=== PATIENT | female | born 2000 | race Two or more races ===

== ENCOUNTER 2019-03-30 23:15 | Emergency (ER) | payer SELFPAY ==
[~2019-03-30] VITALS: Ht 160 cm; Wt 84.8 kg
[2019-03-31 00:15] VITALS: BP 115/69
--- NOTE | 2019-03-31 00:50 | PHYS DOC ---
Past Medical History Past Medical History: No Pertinent History Past Surgical History: No Surgical History Additional Information: Nonsmoker Alcohol Use: None Drug Use: None Adult General Chief Complaint Chief Complaint: SYNCOPE HPI HPI 18-year-old female presents with report of occipital numbness after patient had mechanical slip and fall on her stairs and ended up striking the back of her head on the stairwell wall. Patient denies loss of consciousness. Denies laceration. Denies neck pain. Denies use of blood thinners. Denies . Patient reports she is currently treated with control. Utilization of spanish medical interpreter line for Mongolian speaker. Review of Systems Review of Systems Constitutional: Denies fever or chills Eyes: Denies redness or eye pain HENT: Denies nasal congestion or epistaxis Respiratory: Denies cough or shortness of breath Cardiovascular: Denies chest pain or palpitations GI: Denies abdominal pain, nausea, or vomiting : Denies dysuria or hematuria Musculoskeletal: Denies back pain or neck pain Integument: Denies laceration; reports occipital contusion Neurologic: Reports headache, dizziness, and occipital numbness; denies focal weakness Complete systems were reviewed and found to be within normal limits, except as documented in this note. Allergies Allergies Allergies Coded Allergies Type Severity Reaction Last Updated Verified Pork/Porcine Containing Products Allergy Intermediate 09/22/18 Yes Physical Exam Physical Exam Constitutional: Well developed, well nourished, no acute distress, non-toxic appearance HENT: Normocephalic, no hematoma appreciated, oropharynx moist, external ear canals clear, no Acosta sign Eyes: PERRL, EOMI, conjunctiva normal, no discharge, no periorbital ecchymosis Neck: Normal range of motion, no midline tenderness, supple Cardiovascular: Heart rate normal, regular rhythm Lungs & Thorax: Bilateral breath sounds clear to auscultation, no wheezing Abdomen: Soft, no tenderness Skin: Warm, dry, no erythema, no rash Back: No midline tenderness, no CVA tenderness Extremities: No tenderness, ROM intact, no edema Neurologic: Alert and oriented X 3, normal motor function, normal sensory function, no focal deficits noted Psychologic: Affect normal, judgement normal Current Patient Data Vital Signs Vital Signs Date Time Temp Pulse Resp B/P (MAP) Pulse Ox O2 Delivery O2 Flow Rate FiO2 03/30/19 23:15 98.2 111 18 124/83 (97) 98 Room Air 98.2 Lab Values Laboratory Tests Test 03/30/19 23:31 POC Urine HCG, Qualitative Hcg negative (Negative) EKG EKG [] Radiology/Procedures Radiology/Procedures PROCEDURE: CT HEAD WO CONTRAST CT head without contrast: Reason for examination: Head contusion. Axial images were obtained through the brain. No contrast was administered. Exposure: One or more of the following individualized dose reduction techniques were utilized for this examination: 1. Automated exposure control 2. Adjustment of the mA and/or kV according to patient size 3. Use of iterative reconstruction technique. Ventricular systems are symmetric and not abnormally dilated. No midline shift is seen. There is no evidence of intracranial hemorrhage, infarct, mass or edema. No abnormalities of seen at the orbits. There does appear to be a mucous retention cyst in the left maxillary antrum measuring approximately 2 cm in size. Remaining paranasal sinuses and mastoid air cells are clear. No acute abnormality seen in the skull. IMPRESSION: No acute intracranial abnormality. Mucous retention cyst in the left maxillary antrum. Electronically signed by: Marimar Marshall MD (03/31/2019 1:00 AM) [facility] Course & Med Decision Making Course & Med Decision Making Pertinent Imaging studies reviewed. (See chart for details) Patient presents with report of occipital contusion with subsequent "numbness". Patient otherwise neurologically intact. No midline cervical spine tenderness noted. No clinical signs of skull fracture. Ice pack applied. CT head without acute process. Patient stable for discharge with outpatient follow-up with PCP. Discussed findings and plan with patient and family, who acknowledge understanding and agreement. Dragon Disclaimer Dragon Disclaimer This electronic medical record was generated, in whole or in part, using a voice recognition dictation system. Departure Departure Impression: Primary Impression: Contusion of occipital region of scalp Disposition: HOME, SELF-CARE Condition: STABLE Referrals: NO PCP (PCP) Patient Instructions: Facial or Scalp Contusion, [id number] Additional Instructions: Use over the counter Tylenol and Ibuprofen as needed for pain. Problem Qualifiers Primary Impression: Contusion of occipital region of scalp Encounter type: initial encounter Qualified Codes: S00.03XA - Contusion of scalp, initial encounter EUGENIA BROWER DO Mar 31, 2019 00:50
--- NOTE | 2019-03-31 01:03 | RAD ---
CT head without contrast: Reason for examination: Head contusion. Axial images were obtained through the brain. No contrast was administered. Exposure: One or more of the following individualized dose reduction techniques were utilized for this examination: 1. Automated exposure control 2. Adjustment of the mA and/or kV according to patient size 3. Use of iterative reconstruction technique. Ventricular systems are symmetric and not abnormally dilated. No midline shift is seen. There is no evidence of intracranial hemorrhage, infarct, mass or edema. No abnormalities of seen at the orbits. There does appear to be a mucous retention cyst in the left maxillary antrum measuring approximately 2 cm in size. Remaining paranasal sinuses and mastoid air cells are clear. No acute abnormality seen in the skull. IMPRESSION: No acute intracranial abnormality. Mucous retention cyst in the left maxillary antrum. Electronically signed by: Marimar Marshall MD (03/31/2019 1:00 AM) [facility]
[2019-03-31] MEDS ORDERED: IBUPROFEN 200 MG TABLET. PO ONE (01:30)
== END 2019-03-31 01:15 | disposition home or self-care (01) ==
LOC: ER 23:15
DX: S00.03XA Contusion of scalp, initial encounter (principal); R20.0 Anesthesia of skin; Z91.018 Allergy to other foods; W10.8XXA Fall (on) (from) other stairs and steps, initial encounter; Y93.89 Activity, other specified; Y92.89 Other specified places as the place of occurrence of the external cause; Y99.8 Other external cause status
CPT/HCPCS: 70450; 81025; 99284-25

== ENCOUNTER 2019-09-20 09:03 | Emergency (ER) | payer SELFPAY ==
[~2019-09-20] VITALS: Ht 157.5 cm; Wt 84.8 kg
[2019-09-20 10:34] VITALS: BP 116/77
--- NOTE | 2019-09-20 10:59 | PHYS DOC ---
Past Medical History Past Medical History: No Pertinent History Past Surgical History: No Surgical History Alcohol Use: None Drug Use: None Adult General Chief Complaint Chief Complaint: BACK INJURY [facility] HPI Patient is a 19 year old female who presents to the emergency department with complaints of low back pain that radiates to both of her legs for the last 2 months. 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 Patient denies any alleviating or exacerbating factors she denies any injury or fall. Patient also denies any numbness, tingling, or weakness of the lower extremities or saddle anesthesia. She denies any cough, shortness of breath, fever, dysuria, increased urinary frequency, or hematuria. Lately she rates her discomfort a 6 out of 10 on the pain scale she denies any alleviating factors. All other ROS is neg unless otherwise noted in HPI. Review of Systems Review of Systems See Above Allergies Allergies Allergies Coded Allergies Type Severity Reaction Last Updated Verified Pork/Porcine Containing Products Allergy Intermediate 09/22/18 Yes Physical Exam Physical Exam See Above Constitutional: Well developed, well nourished, no acute distress, non-toxic appearance. [] HENT: Normocephalic, atraumatic, bilateral external ears normal, nose normal. [] Eyes: PERRLA, EOMI, conjunctiva normal, no discharge. [] Neck: Normal range of motion, no stridor. [] Cardiovascular:Heart rate regular rhythm Lungs & Thorax: Respirations even and unlabored, no retractions, no respiratory distress Skin: Warm, dry, no erythema, no rash. [] Back: No bony tenderness Extremities: No cyanosis, ROM intact, Neurologic: Alert and oriented X 3, no focal deficits noted. [] Psychologic: Affect normal, judgement normal, mood normal. [] Current Patient Data Vital Signs Vital Signs Date Time Temp Pulse Resp B/P (MAP) Pulse Ox O2 Delivery O2 Flow Rate FiO2 09/20/19 10:34 98.1 88 18 116/77 (90) 96 Room Air 98.1 EKG EKG [] Radiology/Procedures Radiology/Procedures [] Course & Med Decision Making Course & Med Decision Making Pertinent Labs and Imaging studies reviewed. (See chart for details) dx: medical screening exam A medical screening exam was performed, patient was found to have no emergent medical condition. The plan of care would've included prescription for naproxen and Flexeril as well as instructions about back pain and sciatica . However, the patient eloped after talking with registration. [] [] Dragon Disclaimer Dragon Disclaimer This electronic medical record was generated, in whole or in part, using a voice recognition dictation system. Departure Departure Impression: Primary Impression: Encounter for medical screening examination Disposition: HOME, SELF-CARE (eloped after speaking with registrar) Condition: STABLE Referrals: NO PCP (PCP) MONI MILLAN [employer] Sep 20, 2019 10:59
== END 2019-09-20 10:37 | disposition home or self-care (01) ==
LOC: ER 09:03
DX: M54.5 Low back pain (principal); Z91.018 Allergy to other foods
CPT/HCPCS: 99281

== ENCOUNTER 2020-08-09 15:28 | Emergency (ER) | payer SELFPAY ==
[~2020-08-09] VITALS: Ht 165.1 cm; Wt 90.9 kg
[2020-08-09 16:00] VITALS: BP 132/78
[2020-08-09] MEDS ORDERED: LIDOCAINE 1% Multi-Dose 20 ML VIAL. INJ ONE (16:15)
[2020-08-09] MEDS ORDERED: DIPH,PERTUSS(ACELL),TET VAC/PF 0.5 ML SYRINGE. VAX IM ONE (16:15)
--- NOTE | 2020-08-09 17:41 | RAD ---
Exam: Left finger 3 views INDICATION: Index finger lacerations TECHNIQUE: Frontal view of the left hand with oblique and lateral views of the second digit Comparisons: None FINDINGS: Bone mineralization is normal. No acute or healed fractures. Soft tissue defect along the ulnar aspect of the distal phalanx second digit. Joint spaces are well-maintained. IMPRESSION: Laceration at the ulnar aspect of the distal second digit without underlying osseous abnormality or radiopaque foreign body identified. Electronically signed by: Eliu Sinclair MD (08/09/2020 5:39 PM) [id number]
[2020-08-09] MEDS ORDERED: IBUP-1007 PO (18:13)
[2020-08-09] MEDS ORDERED: NEOM28.32 TP (18:13)
--- NOTE | 2020-08-09 18:14 | PHYS DOC ---
Past Medical History Past Medical History: No Pertinent History Past Surgical History: No Surgical History Smoking Status: Never Smoker Alcohol Use: None Drug Use: None General Adult EDM: Chief Complaint: LACERATION/AVULSION HPI: HPI: Patient is a 19 year old female patient who presents to the ED today with right index finger lacerations. Patient states she tripped [facility]. She is right-handed. Review of Systems: Review of Systems: Constitutional: Denies fever or chills. [] Musculoskeletal: Denies back pain or joint pain. [] Integument: Reports right index finger laceration Neurologic: Denies headache, focal weakness or sensory changes. [] Psychiatric: Denies depression or anxiety. [] Heart Score: Risk Factors: Risk Factors: DM, Current or recent (<one month) smoker, HTN, HLP, family history of CAD, obesity. Risk Scores: Score 0 - 3: 2.5% MACE over next 6 weeks - Discharge Home Score 4 - 6: 20.3% MACE over next 6 weeks - Admit for Clinical Observation Score 7 - 10: 72.7% MACE over next 6 weeks - Early Invasive Strategies Current Medications: Current Medications Medications (Trade) Dose Ordered Sig/Tony Start Time Stop Time Status Last Admin Dose Admin Diphtheria/ Tetanus/Acell Pertussis (ADACEL TDap SYRINGE) 0.5 ml ONCE ONCE 08/09/20 16:15 08/09/20 16:16 DC 08/09/20 16:17 0.5 ML Lidocaine HCl (Lidocaine 1% 20ml Vial) 20 ml 1X ONCE 08/09/20 16:15 08/09/20 16:16 DC 08/09/20 16:15 20 ML Allergies: Allergies: Allergies Coded Allergies Type Severity Reaction Last Updated Verified Pork/Porcine Containing Products Allergy Intermediate 09/22/18 Yes Physical Exam: PE: Constitutional: Well developed, well nourished, no acute distress, non-toxic appearance. [] Skin: Distal end of the right index finger dorsal aspect with multiple superficial laceration. There is a 2 cm laceration on the lateral aspect medial aspect of the right index finger distal and as well as another 0.5 cm laceration on the right index finger distal and that need to be repaired. Full range of motion to the right index finger. Adequate flexion and extension of the right index finger at the MIP, PIP and DIP joint. +2 right radial pulse. Cap refill less than 2 seconds the right index finger Back: No tenderness, no CVA tenderness. [] Extremities: No tenderness, no cyanosis, no clubbing, ROM intact, no edema. [] Neurologic: Alert and oriented X 3, normal motor function, normal sensory function, no focal deficits noted. [] Psychologic: Affect normal, judgement normal, mood normal. [] Current Patient Data: Vital Signs: Vital Signs Date Time Temp Pulse Resp B/P (MAP) Pulse Ox O2 Delivery O2 Flow Rate FiO2 08/09/20 16:00 98.6 79 18 132/78 (96) 97 Room Air 98.6 EKG: EKG: [] Radiology/Procedures: Radiology/Procedures: []PROCEDURE: FINGER(S) LEFT Exam: Left finger 3 views INDICATION: Index finger lacerations TECHNIQUE: Frontal view of the left hand with oblique and lateral views of the second digit Comparisons: None FINDINGS: Bone mineralization is normal. No acute or healed fractures. Soft tissue defect along the ulnar aspect of the distal phalanx second digit. Joint spaces are well-maintained. IMPRESSION: Laceration at the ulnar aspect of the distal second digit without underlying osseous abnormality or radiopaque foreign body identified. Electronically signed by: Eliu Stone MD (08/09/2020 5:39 PM) [id number] DICTATED and SIGNED BY: ELIU STONE MD DATE: 08/09/20 1739 Laceration/Wound Repair Laceration/Wound Repair : [] Wound Location: Right index finger Wound's Depth, Shape: Horizontal Wound Length (cm): See physical exam Wound Explored: clean Irrigated w/ Saline (ccs): 30 Betadine Prep?: Yes Anesthesia: 1% of lidocaine Volume Anesthetic (ccs): 6 cc Wound Repaired With: Vicryl Suture Size/Type: 4.0 and 5.0/interrupted sutures Number of Sutures: The larger laceration was closed with 8 interrupted sutures, the smaller laceration was closed with 2 interrupted sutures. Patient tolerated the procedure poorly. Progress : Wounds were covered with nonstick dressing Course & Med Decision Making: Course & Med Decision Making Pertinent Labs and Imaging studies reviewed. (See chart for details) This is a 19-year-old female patient presenting to the ED today with right index finger lacerations that were closed by me as noted in procedures. Right index finger x-rays are negative for any acute findings. Wound care instructions and return precautions provided to patient. Medication Tech line was used for Welsh. Tetanus was updated. Return precautions provided. Niko Disclaimer: Niko Disclaimer: This electronic medical record was generated, in whole or in part, using a voice recognition dictation system. Departure Departure Impression: Primary Impression: Laceration of index finger Qualified Codes: S61.210A - Laceration without foreign body of right index finger without damage to nail, initial encounter Disposition: 01 DC HOME SELF CARE/HOMELESS Condition: STABLE Referrals: NO PCP (PCP) Follow-up with your own doctor as needed Patient Instructions: Fingertip Laceration Additional Instructions: You have laceration to the right index finger that was closed with dissolvable stitches. Keep the area clean and dry. Remove the dressing tomorrow evening. You can wash the affected finger with regular soap and water once or twice a day. Do not soak the finger in water. Please apply Neosporin to the finger twice a day. You can take ibuprofen as prescribed for pain. Monitor the area for any signs of infection including increased drainage, warmth, yellow drainage from the area and follow-up with your doctor or return to the emergency room. Scripts Neomy Sulf/Bacitrac Zn/Poly (NEOSPORIN OINTMENT) 28.3 Gm Oint...g. 1 APPLIC TP BID, #1 MISC Prov: ELLIS HOOVER APRN 08/09/20 Ibuprofen (IBUPROFEN) 600 Mg Tablet 600 MG PO PRN Q6HRS PRN for INFLAMMATION, #30 TAB Prov: ELLIS HOOVER APRN 08/09/20 ELLIS HOOVER APRN Aug 09, 2020 18:14
== END 2020-08-09 18:32 | disposition home or self-care (01) ==
LOC: ER 15:28
DX: S61.211A Laceration without foreign body of left index finger without damage to nail, initial encounter (principal); Z91.018 Allergy to other foods; Y28.8XXA Contact with other sharp object, undetermined intent, initial encounter; Y93.89 Activity, other specified; Y92.89 Other specified places as the place of occurrence of the external cause; Y99.8 Other external cause status
CPT/HCPCS: 12001; 73140; 90471; 90715; 99283; J3490